=== PATIENT | female | born 1975 | race Caucasian/White ===

== ENCOUNTER → 2016-06-28 | Outpatient (CLI) | payer BC ==
[~2016-06-28] MED LIST: ACET50TA PO; IBUP80TA PO; OMEP10CASR PO; PEPC10TA PO; TYLE500T78 PO; VITAPRTA PO
[2016-06-28 19:18] LABS: ALBUMIN/GLOBULIN RATIO 1.43 (1.00-1.93); ALKALINE PHOSPHATASE 43 U/L (45-117); ALT/SGPT 15 U/L (12-78); ANION GAP 8 MEQ/L (8-16); AST/SGOT 10 U/L (15-37); BILIRUBIN,TOTAL 0.4 MG/DL (0.2-1.0); BLOOD UREA NITROGEN 9 MG/DL (7-18); CALCIUM LEVEL 8.7 MG/DL (8.5-10.1); CARBON DIOXIDE LEVEL 26 MEQ/L (21-32); CHLORIDE LEVEL 107 MEQ/L (98-107); CREATININE FOR GFR 0.78 MG/DL (0.55-1.02); FERRITIN 16 NG/ML (8-252); GLOMERULAR FILTRATION RATE > 60.0 (>60); GLUCOSE, FASTING 87 MG/DL (70-105); MAGNESIUM LEVEL 2.1 MG/DL (1.8-2.4); PERCENT SATURATION 3.3 % (13.2-37.4); PHOSPHORUS LEVEL 3.4 MG/DL (2.5-4.9); POTASSIUM SERUM 4.2 MEQ/L (3.5-5.1); SODIUM LEVEL 141 MEQ/L (136-145); TOTAL IRON BINDING CAPACITY 518 UG/DL (250-450); TOTAL PROTEIN 6.8 GM/DL (6.4-8.2)
[2016-06-28 19:21] LABS: VITAMIN B12 LEVEL 326 PG/ML (247-911)
[2016-06-28 19:43] LABS: BASO # 0.1 K/mm3 (0.0-0.2); BASO % 1.1 % (0.0-1.0); EOS # 0.2 K/mm3 (0.0-0.50); EOS % 3.4 % (0.0-3.0); LARGE UNSTAINED CELL # 0.1 K/mm3 (0.0-0.4); LARGE UNSTAINED CELL % 1.7 % (0.0-4.0); LYMPH # 1.6 K/mm3 (1.5-4.5); LYMPH % 27.6 % (24.0-44.0); MEAN CORPUSCULAR HEMOGLOBIN 23.3 pg (27.0-33.0); MEAN CORPUSCULAR HGB CONC 30.4 g/dl (32.0-36.5); MEAN CORPUSCULAR VOLUME 76.7 fl (80.0-96.0); MONO # 0.5 K/mm3 (0.0-0.8); MONO % 8.4 % (0.0-5.0); NEUTROPHILS # 3.2 K/mm3 (1.8-7.7); NEUTROPHILS % 57.8 % (36.0-66.0); PLATELET COUNT, AUTOMATED 187 k/mm3 (150-450); RED CELL DISTRIBUTION WIDTH 17.3 % (11.5-14.5); WHITE BLOOD COUNT 5.5 K/mm3 (4.0-10.0)
[2016-06-29 10:59] LABS: PRETREATED FOLATE FOR RBCFOL 11.5 NG/ML
== END ==
LOC: M LAB 16:40
PROVIDERS: ATTEND Surgery
DX: K91.2 Postsurgical malabsorption, not elsewhere classified (principal)

== ENCOUNTER 2016-09-01 09:00 | Outpatient (CLI) | payer BC ==
[~2016-09-01] VITALS: Ht 160 cm; Wt 72.7 kg
[2016-09-01] MEDS ORDERED: IRON SUCROSE 25 MG in NS 50 ML IV ONE (09:30)
[2016-09-01] MEDS ORDERED: IRON SUCROSE 475 MG in NS 250 ML IV ONE (10:45)
[2016-09-01 11:37] LABS: FOLATE 23.8 NG/ML
[2016-09-01] MEDS ORDERED: BARI1CHW PO (13:18)
[2016-09-01] MEDS ORDERED: IRON65TA PO (13:19)
[2016-09-01] MEDS ORDERED: DRIS50002 PO (13:19)
[2016-09-01] MEDS ORDERED: D 50CAP PO (13:20)
[2016-09-01] MEDS ORDERED: ALBU17IN INH (13:21)
== END 2016-09-01 14:30 | disposition home or self-care (01) ==
LOC: M INFU 09:00
PROVIDERS: ATTEND Family Medicine
DX: D50.9 Iron deficiency anemia, unspecified (principal); Z98.890 Other specified postprocedural states; F17.200 Nicotine dependence, unspecified, uncomplicated; E55.9 Vitamin D deficiency, unspecified; J45.30 Mild persistent asthma, uncomplicated; Z79.899 Other long term (current) drug therapy
CPT/HCPCS: 80061; 82306; 82607; 82746; 83540; 96365; J1756

== ENCOUNTER 2016-09-15 09:12 | Outpatient (CLI) | payer BC ==
[~2016-09-15 09:12] MED LIST changes: +ALBU17IN INH; +BARI1CHW PO; +D 50CAP PO; +DRIS50002 PO; +IRON65TA PO
[2016-09-15] MEDS ORDERED: IRON SUCROSE 500 MG in NS 250 ML IV ONE (09:30)
== END 2016-09-15 09:40 | disposition home or self-care (01) ==
LOC: M INFU 09:12
PROVIDERS: ATTEND Family Medicine
DX: D50.0 Iron deficiency anemia secondary to blood loss (chronic) (principal); Z53.8 Procedure and treatment not carried out for other reasons; F17.200 Nicotine dependence, unspecified, uncomplicated; J45.30 Mild persistent asthma, uncomplicated; B00.1 Herpesviral vesicular dermatitis; N92.0 Excessive and frequent menstruation with regular cycle
CPT/HCPCS: 96365; J1756

== ENCOUNTER 2016-09-23 08:53 | Outpatient (CLI) | payer BC ==
[~2016-09-23] VITALS: Ht 160 cm; Wt 72.7 kg
[2016-09-23] MEDS ORDERED: IRON SUCROSE 500 MG in NS 250 ML IV ONE (09:30)
== END 2016-09-23 13:45 | disposition home or self-care (01) ==
LOC: M INFU 08:53
PROVIDERS: ATTEND Family Medicine
DX: D50.0 Iron deficiency anemia secondary to blood loss (chronic) (principal); J45.30 Mild persistent asthma, uncomplicated; F17.210 Nicotine dependence, cigarettes, uncomplicated
CPT/HCPCS: 96365; 96366; J1756

== ENCOUNTER → 2017-01-03 | Outpatient (CLI) | payer OTHER ==
[~2017-01-03] MED LIST changes: -PEPC10TA PO; +PEPC10TA6 PO
[2017-01-03 17:35] LABS: CONTROL LINE HCG INT CTR LINE PRESENT
[2017-01-03 17:59] LABS: INR 0.93
== END ==
LOC: M SMT 14:33
PROVIDERS: ATTEND Physical Medicine & Rehabilitation
DX: M48.06 Spinal stenosis, lumbar region (principal)

== ENCOUNTER → 2017-05-02 | Outpatient (REF) | payer BC ==
[2017-05-02 15:20] LABS: IONIZED CALCIUM 4.6 MG/DL (4.5-5.3)
[2017-05-02 15:27] LABS: BASO # 0.1 10^3/uL (0.0-0.2); BASO % 1.2 % (0.0-1.0); EOS # 0.2 10^3/uL (0.0-0.50); EOS % 2.6 % (0.0-3.0); HEMOGLOBIN 14.2 g/dl (12.0-16.0); IMMATURE GRANULOCYTE % 0.2 % (0-0); LYMPH # 1.2 10^3/uL (1.5-4.5); LYMPH % 20.1 % (24.0-44.0); MEAN CORPUSCULAR HEMOGLOBIN 28.9 pg (27.0-33.0); MEAN CORPUSCULAR VOLUME 87.6 fl (80.0-96.0); MONO # 0.7 10^3/uL (0.0-0.8); MONO % 12.1 % (0.0-5.0); NEUTROPHILS # 3.8 10^3/uL (1.8-7.7); NEUTROPHILS % 63.8 % (36.0-66.0); PLATELET COUNT, AUTOMATED 213 10^3/uL (150-450); RED BLOOD COUNT 4.91 10^6/uL (4.00-5.40); RED CELL DISTRIBUTION WIDTH 14.3 % (11.5-14.5); WHITE BLOOD COUNT 5.9 10^3/uL (4.0-10.0)
[2017-05-02 15:51] LABS: C REACTIVE PROTEIN QUANTITATIV < 0.30 MG/DL (0.00-0.30); FREE T4 0.86 NG/DL (0.76-1.46); IRON (FE) 20 UG/DL (50-170); RHEUMATOID FACTOR QUANT < 10.0 IU/ML (0-15.0); TOTAL 25(OH) VITAMIN D 22.7 NG/ML (30.0-100.0); URIC ACID 2.8 MG/DL (2.6-6.0)
[2017-05-02 15:52] LABS: FOLATE 11.6 NG/ML (>5.4)
[2017-05-02 16:02] LABS: ESTIMATED AVERAGE GLUCOSE 117 MG/DL (60-110); HEMOGLOBIN A1c 5.7 %
== END ==
LOC: M SFHCPLAZ 12:37
DX: Z98.890 Other specified postprocedural states (principal); D50.0 Iron deficiency anemia secondary to blood loss (chronic); M13.0 Polyarthritis, unspecified; F41.8 Other specified anxiety disorders; H53.8 Other visual disturbances

== ENCOUNTER → 2018-05-30 | Outpatient (REF) | payer BC ==
[~2018-05-30] MED LIST changes: -ACET50TA PO; -DRIS50002 PO; +DRIS50003 PO; +MAPA500T2 PO
[2018-05-30 19:18] LABS: BASO # 0.1 10^3/uL (0.0-0.2); BASO % 1.5 % (0.0-1.0); EOS # 0.1 10^3/uL (0.0-0.50); HEMATOCRIT 38.2 % (36.0-47.0); LYMPH # 1.2 10^3/uL (1.5-4.5); LYMPH % 19.6 % (24.0-44.0); MEAN CORPUSCULAR HGB CONC 31.4 g/dl (32.0-36.5); MEAN CORPUSCULAR VOLUME 79.6 fl (80.0-96.0); MONO # 0.9 10^3/uL (0.0-0.8); MONO % 14.6 % (0.0-5.0); NEUTROPHILS # 3.8 10^3/uL (1.8-7.7); NEUTROPHILS % 62.1 % (36.0-66.0); PLATELET COUNT, AUTOMATED 241 10^3/uL (150-450); WHITE BLOOD COUNT 6.1 10^3/uL (4.0-10.0)
[2018-05-30 19:55] LABS: C REACTIVE PROTEIN QUANTITATIV < 0.30 MG/DL (0.00-0.30); IRON (FE) 19 UG/DL (50-170)
[2018-05-30 20:00] LABS: ERYTHROCYTE SEDIMENTATION RATE 6 mm/hr (0-20); TOTAL 25(OH) VITAMIN D 23.9 NG/ML (30.0-100.0)
[2018-06-01 15:05] LABS: ANTI DOUBLE STRAND-DNA AB 1 IU/mL (0-9); ANTINUCLEAR ANTIBODIES DIRECT Negative (Negative)
== END ==
LOC: M SFHCPLAZ 15:09
PROVIDERS: ATTEND Family Medicine
DX: M13.0 Polyarthritis, unspecified (principal); R53.82 Chronic fatigue, unspecified; F41.8 Other specified anxiety disorders; E55.9 Vitamin D deficiency, unspecified

== ENCOUNTER → 2019-03-02 | Outpatient (CLI) | payer BC ==
--- NOTE | 2019-03-02 14:39 | REP ---
Three views chest: 03/02/2019. Indication: Cough. Comparison: None. Findings: The lungs are clear. There is no pleural effusion or pneumothorax. The cardiomediastinal silhouette is unremarkable. Impression: No acute cardiopulmonary process. Electronically Signed by Antonio Tenorio DO 03/02/2019 02:30 P
== END ==
LOC: M ADAMS 13:48
PROVIDERS: ATTEND Family Medicine
DX: Z00.00 Encounter for general adult medical examination without abnormal findings (principal); R05 Cough

== ENCOUNTER → 2019-09-14 | Outpatient (REF) | payer BC ==
[2019-09-14 17:56] LABS: BASO # 0.1 10^3/uL (0.0-0.2); BASO % 1.7 % (0.0-1.0); EOS # 0.2 10^3/uL (0.0-0.5); EOS % 3.4 % (0.0-3.0); HEMATOCRIT 38.4 % (36.0-47.0); HEMOGLOBIN 12.2 g/dl (12.0-15.5); LYMPH # 1.7 10^3/uL (1.5-5.0); LYMPH % 26.5 % (24.0-44.0); MEAN CORPUSCULAR HEMOGLOBIN 26.3 pg (27.0-33.0); MEAN CORPUSCULAR HGB CONC 31.8 g/dl (32.0-36.5); MEAN CORPUSCULAR VOLUME 82.9 fl (80.0-96.0); MONO # 0.8 10^3/uL (0.0-0.8); MONO % 12.3 % (0.0-5.0); NEUTROPHILS # 3.6 10^3/uL (1.5-8.5); NEUTROPHILS % 55.8 % (36.0-66.0); PLATELET COUNT, AUTOMATED 251 10^3/uL (150-450); RED BLOOD COUNT 4.63 10^6/uL (4.00-5.40); WHITE BLOOD COUNT 6.5 10^3/uL (4.0-10.0)
[2019-09-14 18:55] LABS: ALBUMIN 4.1 GM/DL (3.2-5.2); ALT/SGPT 24 U/L (12-78); BILIRUBIN,TOTAL 0.5 MG/DL (0.2-1.0); BLOOD UREA NITROGEN 9 MG/DL (7-18); CALCIUM LEVEL 9.4 MG/DL (8.5-10.1); CARBON DIOXIDE LEVEL 27 MEQ/L (21-32); CHLORIDE LEVEL 104 MEQ/L (98-107); CREATININE FOR GFR 0.79 MG/DL (0.55-1.30); FREE T4 0.97 NG/DL (0.76-1.46); GLOMERULAR FILTRATION RATE > 60.0 (>58); GLUCOSE, FASTING 84 MG/DL (70-100); IRON (FE) 20 UG/DL (50-170); POTASSIUM SERUM 4.2 MEQ/L (3.5-5.1); SODIUM LEVEL 136 MEQ/L (136-145); TOTAL 25(OH) VITAMIN D 23.6 NG/ML (30.0-100.0); TOTAL PROTEIN 7.3 GM/DL (6.4-8.2)
== END ==
LOC: M SFHCADAM 16:42
PROVIDERS: ATTEND Family Medicine
DX: Z98.84 Bariatric surgery status (principal); F41.9 Anxiety disorder, unspecified

== ENCOUNTER → 2020-01-30 | Outpatient (CLI) | payer OTHER ==
--- NOTE | 2020-01-30 11:54 | REP ---
INDICATION: N63.10 LUMP OF RT BREAST. COMPARISON: None TECHNIQUE: MLO and CC views of both breasts performed. Additional spot compression views of the right breast are performed. Focused right breast ultrasound performed at the site of the reported palpable lump at about 10 to 11 o'clock position. FINDINGS: Breast parenchyma is moderately dense in a heterogeneous pattern. No mass or clustered microcalcifications are seen bilaterally. No mammographic abnormality is seen at the site of the palpable lump. Real-time sonographic evaluation of upper outer quadrant right breast is performed at the site of the palpable lump. No discrete cystic or solid nodule is seen. The Volpara volumetric breast density pattern is C. IMPRESSION: BIRADS/ACR category 1-. No mass or clustered microcalcifications mammographically. There is no mammographic or sonographic evidence of a mass at the site of the reported palpable abnormality upper outer quadrant right breast. A negative mammogram and ultrasound should not deter biopsy if there is a clinically suspicious palpable mass present. Clinical correlation and follow-up recommended. This patient's Tyrer-Cuzick lifetime breast cancer risk assessment score is 10.2%. This mammogram was interpreted with the aid of an FDA-approved computer-aided detection system. The patient states she had a clinical breast exam in January 2020. The patient letter being requested is M2. RECOMMENDATION: Repeat screening mammography recommended 1 year (for women over 40). Given the dense breast parenchyma, history of clinical finding and right nipple discharge, MRI is recommended. <Electronically signed by Tye Melgar > 01/30/20 [id number]
== END ==
LOC: M WHC 08:42
PROVIDERS: ATTEND Family Medicine
DX: N63.10 Unspecified lump in the right breast, unspecified quadrant (principal)

== ENCOUNTER → 2020-02-25 | Outpatient (REF) | payer OTHER ==
[~2020-02-25] MED LIST changes: +B-12100T2 PO; +D31000TA2 PO; +IRON240T PO; +MULT-90 PO; +PAXI20TA29 PO; +VENTAER INH; +VITA500C19 PO
== END ==
LOC: M SFHCWAGY 17:14
PROVIDERS: ATTEND Obstetrics & Gynecology
DX: Z12.4 Encounter for screening for malignant neoplasm of cervix (principal); Z01.419 Encounter for gynecological examination (general) (routine) without abnormal findings

== ENCOUNTER → 2020-02-28 | Outpatient (REF) | payer OTHER | LOC: M SFHCWAGY 13:06 | PROVIDERS: ATTEND Obstetrics & Gynecology | DX: N93.9 Abnormal uterine and vaginal bleeding, unspecified (principal) ==

== ENCOUNTER → 2020-02-28 | Outpatient (CLI) | payer OTHER ==
[~2020-02-28] MED LIST changes: +PROHANCE 279.3MG/ML 15ML VIAL As Ordered ONE
--- NOTE | 2020-02-28 18:21 | REP ---
INDICATION: BREAST DISCHARGE. COMPARISON: Mammogram 01/30/2020. TECHNIQUE: Three [place] MRI imaging was performed with a dedicated breast coil. Axial, coronal, and sagittal T1 and T2 weighted scans were obtained with and without fat saturation in the usual fashion. The study includes dynamically acquired post gadolinium-enhanced imaging with image subtraction. Maximum intensity projection and multi planar reformation imaging is included as well. This study is interpreted with the aid of BlueflyD, an FDA approved computer aided detection (CAD) software program, on a dedicated breast MRI workstation. The gadolinium enhancement dose is 15 mL of intravenous ProHance. FINDINGS: There is moderate fibroglandular tissue symmetrically bilaterally. No significant cystic changes seen in either breast. There is no axillary adenopathy. There is very mild background parenchymal enhancement bilaterally. I see no suspicious enhancing mass or morphologic abnormality. IMPRESSION: BI-RADS category 1-bilateral breast MRI. No suspicious enhancing mass or morphologic abnormality. <Electronically signed by Tye Melgar > 02/28/20 [id number]
== END ==
LOC: M RAD 15:30
PROVIDERS: ATTEND Family Medicine
DX: N64.52 Nipple discharge (principal); N63.0 Unspecified lump in unspecified breast
CPT/HCPCS: A9576; C8908

== ENCOUNTER → 2020-02-29 | Outpatient (CLI) | payer OTHER ==
[~2020-02-29] MED LIST changes: -PROHANCE 279.3MG/ML 15ML VIAL As Ordered ONE
--- NOTE | 2020-02-29 17:05 | REP ---
INDICATION: N93.9 ABNORMAL UTERINE BLEEDING COMPARISON: None. TECHNIQUE: Transabdominal pelvic ultrasound followed by transvaginal examination for better evaluation of the endometrium and adnexa with color Doppler evaluation of the ovaries. FINDINGS: Bladder is collapsed. Normal retroverted uterus measures 6.9 x 4.8 x 5.0 cm. The endometrial complex appears relatively normal with IUD identified in central satisfactory position. Bilateral ovaries are normal in vascularity without evidence for torsion. Right ovary measures 1.9 x 0.8 x 1.9 cm; R I = 0.46. Left ovary measures 4.1 x 1.3 x 1.3 cm with 1.5 x 1.2 x 1.1 cm complex likely physiologic cyst; R I = 0.49. No pelvic fluid or adnexal mass lesion. IMPRESSION: Retroverted uterus with IUD in central satisfactory position. Complex likely physiologic left ovarian cyst <Electronically signed by Enrique De Anda > 02/29/20 [id number]
== END ==
LOC: M WHC 08:34
PROVIDERS: ATTEND Obstetrics & Gynecology
DX: N93.9 Abnormal uterine and vaginal bleeding, unspecified (principal); N83.202 Unspecified ovarian cyst, left side; Z97.5 Presence of (intrauterine) contraceptive device; N85.4 Malposition of uterus

== ENCOUNTER → 2020-03-09 | Outpatient (CLI) | payer OTHER | LOC: M LABSMTC 08:38 | PROVIDERS: ATTEND Anesthesiology | DX: Z01.812 Encounter for preprocedural laboratory examination (principal); Z20.828 Contact with and (suspected) exposure to other viral communicable diseases ==

== ENCOUNTER 2020-03-14 11:20 | Day surgery (SDC) | payer OTHER ==
[~2020-03-14] VITALS: Ht 160 cm; Wt 71.7 kg
[~2020-03-14 11:20] MED LIST changes: +HYDROmorphone HCL 2 MG/ML 1ML VIAL (J1170) As Ordered ONE; +LIDOCAINE 2% 100MG/5ML SDV (FOR ANES.) As Ordered ONE; +LR 1,000 ML IV ONE; +METOCLOPRAMIDE INJ 10MG/2ML VIAL (J2765 PER 1) As Ordered ONE; +MIDAZOLAM INJ 2MG/2ML VIAL (J2250 PER 1MG) As Ordered ONE; +ONDANSETRON 4MG/2ML VIAL As Ordered ONE; +ROCURONIUM BROMIDE 50 MG/5 ML VIAL As Ordered ONE; +SUGAMMADEX SODIUM 500 MG/5 ML VIAL (BRIDION) As Ordered ONE; +ceFAZolin SOD 2 GM in IV 1 EA IV ONE; +dexameTHASONE 4 MG/ML 1ML VIAL (J1100 PER 1MG) As Ordered ONE; +fentaNYL 250 MCG/5 ML INJECTION (J3010) As Ordered ONE; +propofoL 200 MG/20 ML VIAL As Ordered ONE
[2020-03-14 12:16] LABS: HEMOGLOBIN 11.6 g/dl (12.0-15.5); MEAN CORPUSCULAR HEMOGLOBIN 23.8 pg (27.0-33.0); MEAN CORPUSCULAR HGB CONC 30.5 g/dl (32.0-36.5); PLATELET COUNT, AUTOMATED 255 10^3/uL (150-450); RED BLOOD COUNT 4.87 10^6/uL (4.00-5.40)
[2020-03-14] MEDS ORDERED: BUPIVACAINE HCL 0.25% 30ML VIAL As Ordered ONE (12:30)
[2020-03-14] MEDS ORDERED: METHYLENE BLUE 0.5% (5MG/ML) 10 ML AMP (PROVAYBLUE) As Ordered ONE (12:30)
[2020-03-14 12:45] LABS: HCG, SERUM QUALITATIVE NEGATIVE (NEGATIVE)
[2020-03-14] MEDS ORDERED: ACETAMINOPHEN 1000MG 100ML IV BTL (OFIRMEV) (J0131 PER 10MG) As Ordered ONE (13:57)
--- NOTE | 2020-03-14 14:46 | ROOPDOC ---
[facility] Report Of Operation Report of Operation DATE OF PROCEDURE: 03/14/2020 PREPROCEDURE DIAGNOSES: Abnormal uterine bleeding, chronic pelvic pain. POSTPROCEDURE DIAGNOSES: Same. PROCEDURE: Robotic-assisted total laparoscopic hysterectomy, bilateral salpingectomy, cystoscopy SURGEON: David Mckeon D.O. 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 ESTIMATED BLOOD LOSS: Approximately 50 mL. FLUIDS REPLACED: 1700 mL LR URINE OUTPUT: 25-50 mL COMPLICATIONS: None. FINDINGS: Normal-appearing ovaries bilaterally. Uterus was approximately 8 centimeters in greatest dimension. Small hemorrhagic/endometriotic cyst along left uteroovarian ligament medially (incidentally removed along with uterus.) Cystoscopy: Bilateral ureteral orifice efflux, no bladder injury/suture material. PREOPERATIVE ANTIBIOTIC PROPHYLAXIS: Ancef 2 g IV 1. SPECIMEN(S): Uterus w/ cervix, bilateral fallopian tubes DESCRIPTION OF PROCEDURE: The patient was counseled, consented on the respective benefits, indications, alternatives of procedure. Informed consent was obtained. She was taken to the operating room with an IV running. She was placed on the operating table in dorsal supine position. Gen. anesthesia was administered and the airway was secured without any difficulty. She was placed in the low lithotomy position. . She was prepared and draped in the normal sterile fashion. A time out was performed per protocol. A Lopez catheter was placed under sterile conditions. A sterile speculum was placed resulting in good visualization of the cervix. A single-tooth tenaculum was used to grasp the anterior lip cervix. The cervix was sequentially dilated with Valentin dilators. A V-Care uterine manipulator was placed without any difficulty. The single-tooth tenaculum was removed, as well as the speculum. A sterile glove switch was performed. Attention was turned to the abdomen. A 2mm incision was made in the umbilicus, and through this incision a Veress needle was inserted into the intraperitoneal cavity. Intraperitoneal placement was confirmed with ease of flow of normal saline, positive drop test, no return on aspiration, and an opening pressure of less than 10 mmHg upon initial insufflation. The abdomen was insufflated with 2 L of gas. The Veress needle was removed. A supraumbilical 8 mm incision was made. Through this incision, the robotic trochar/cannula was inserted into the intraperitoneal cavity under direct visualization. No incidental bleeding nor injury was noted. Patient was placed in 30 Trendelenburg. The right and left trocars/cannulas were placed on both the right and left side through 8 mm incisions, guided by laparoscopic visualization. No incidental bleeding nor injury was noted. The robot was docked in typical fashion. The instruments were inserted, guided by laparoscopic visualization. My attention was turned to the robotic console. Using the vessel sealer device, the right and left fallopian tubes were amputated. The fallopian tubes were brought through the assist-port cannula without any difficulty. The right utero-ovarian ligament and right round ligament were sequentially clamped, coagulated and transected with the vessel sealer device. The vesicouterine peritoneum was dissected with the vessel sealer device to create the bladder flap, thus mobilizing the lower uterine segment and cervix off of the bladder. The right uterine vasculature was sequentially clamped, coagulated and transected above the colpotomy cup. The left utero-ovarian ligament and left round ligament were sequentially clamped, coagulated and transected with the vessel sealer device. The remainder of the bladder flap was dissected using the vessel sealer device and blunt dissection. The left uterine vasculature was sequentially clamped, coagulated and transected above the colpotomy cup. The outline of the entire V- care colpotomy cup was able to be delineated. Excellent blanching of the uterus was noted. A circumferential colpotomy was performed using the da Mario monopolar tito, following the contour of the cup. The amputated cervix and uterus were brought through the colpotomy into and out of the vagina, intact as one unit. The colpotomy was closed with the V-lock barbed suture in running fashion, thus creating the vaginal cuff. Excellent hemostasis was noted throughout the steps above. Chantel was placed over the vaginal cuff to ensure hemostasis. The instruments were removed from the abdomen and the robot was un-docked. The gas was released from the abdomen and the patient was taken out of Trendelenburg. I re-scrubbed, and attention was turned to the pelvis. The Lopez catheter was removed. The cystoscope was placed transurethrally into the bladder and normal saline was instilled. No bladder injury/suture material was noted. IV methylene blue had been administered by anesthesia and bilateral UO efflux was confirmed. The fluid was drained out of the bladder through the cystoscope device, then the cystoscope was removed. The vagina was copiously irrigated. A sterile digital vaginal exam revealed no significant bleeding and an intact vaginal cuff. A sterile glove switch was performed. The da Mario cannulas were removed. The skin incisions were closed with 4-0 Monocryl in subcuticular fashion. Sponge, needle and instrument counts were correct per protocol. The patient tolerated the entire procedure very well. She was transferred to the PACU in good and stable condition. DO ORALIA Maradiaga JONATHAN R. DO Mar 14, 2020 14:46
[2020-03-14] MEDS ORDERED: PERC5TAB12 PO (14:47)
[2020-03-14] MEDS ORDERED: COLA100C5 PO (14:49)
[2020-03-14] MEDS ORDERED: HYDROMORPHONE HCL 0.5 MG/ 0.5 ML SYRINGE (J1170 PER 1) IV PRN (15:00)
[2020-03-14] MEDS ORDERED: fentaNYL 100 MCG/2 ML INJECTION (J3010) IV PRN (15:00)
[2020-03-14] MEDS ORDERED: LR 1,000 ML IV SCH ×2 (15:00)
[2020-03-14] MEDS ORDERED: ONDANSETRON 4MG/2ML VIAL IV PRN ×2 (15:00→15:15)
[2020-03-14] MEDS ORDERED: oxyCODONE 5MG TAB PO PRN (15:00)
[2020-03-14] MEDS ORDERED: KETOROLAC 30 MG/ML 1ML VIAL IV PRN (15:15)
[2020-03-14] MEDS ORDERED: PROMETHAZINE INJ 25 MG/ML VIAL (J2550) IV PRN (15:15)
[2020-03-14] MEDS ORDERED: PERCOCET 5MG/325MG TAB PO PRN (15:15)
[2020-03-14 16:55] VITALS: BP 137/79
[2020-03-14 17:25] VITALS: BP 124/78
[2020-03-14 17:55] VITALS: BP 137/78
[2020-03-14 18:00] VITALS: BP 154/87
[2020-03-14] MEDS ORDERED: ACET1TAB16 PO (19:24)
[2020-03-14] MEDS ORDERED: DOCUSATE SODIUM 100MG CAPSULE PO PRN (21:00)
== END 2020-03-14 20:21 | disposition home or self-care (01) ==
LOC: M SDC 11:20 → M MSPAV 16:49 → M SDC 20:21
PROVIDERS: ATTEND Obstetrics & Gynecology
DX: N93.9 Abnormal uterine and vaginal bleeding, unspecified (principal); R10.2 Pelvic and perineal pain; J45.909 Unspecified asthma, uncomplicated; D64.9 Anemia, unspecified; F41.9 Anxiety disorder, unspecified; Z98.84 Bariatric surgery status; K21.9 Gastro-esophageal reflux disease without esophagitis; Z79.899 Other long term (current) drug therapy; F17.218 Nicotine dependence, cigarettes, with other nicotine-induced disorders
CPT/HCPCS: 36415; 58571; 81025; 84703; 85027; 86850; 86900; 86901; 88307; J0131; J0690; J1100; J1170; J1885; J2250; J2405; J2765; J3010; Q9968; S2900

== ENCOUNTER → 2020-05-12 | Outpatient (REF) | payer OTHER ==
[~2020-05-12] MED LIST changes: +ACET1TAB16 PO; +COLA100C5 PO; -HYDROmorphone HCL 2 MG/ML 1ML VIAL (J1170) As Ordered ONE; -LIDOCAINE 2% 100MG/5ML SDV (FOR ANES.) As Ordered ONE; -LR 1,000 ML IV ONE; -METOCLOPRAMIDE INJ 10MG/2ML VIAL (J2765 PER 1) As Ordered ONE; -MIDAZOLAM INJ 2MG/2ML VIAL (J2250 PER 1MG) As Ordered ONE; -ONDANSETRON 4MG/2ML VIAL As Ordered ONE; +PERC5TAB12 PO; -ROCURONIUM BROMIDE 50 MG/5 ML VIAL As Ordered ONE; -SUGAMMADEX SODIUM 500 MG/5 ML VIAL (BRIDION) As Ordered ONE; -ceFAZolin SOD 2 GM in IV 1 EA IV ONE; -dexameTHASONE 4 MG/ML 1ML VIAL (J1100 PER 1MG) As Ordered ONE; -fentaNYL 250 MCG/5 ML INJECTION (J3010) As Ordered ONE; -propofoL 200 MG/20 ML VIAL As Ordered ONE
[2020-05-12 13:14] LABS: FREE T4 0.71 NG/DL (0.76-1.46); THYROID STIMULATING HORMONE 1.38 uIU/ML (0.358-3.740)
[2020-05-12 13:25] LABS: PROLACTIN 7.2 NG/ML
== END ==
LOC: M PLALAB 10:12
PROVIDERS: ATTEND Surgery
DX: N64.52 Nipple discharge (principal)

== ENCOUNTER → 2020-11-26 | Outpatient (REF) | LOC: M LABSMTC 11:15 | PROVIDERS: ATTEND Pediatrics | DX: Z20.822 Contact with and (suspected) exposure to COVID-19 (principal) ==

== ENCOUNTER → 2021-10-14 | Outpatient (REF) | payer BC ==
[~2021-10-14] MED LIST changes: -ACET1TAB16 PO; +ACET300T48 PO; -D31000TA2 PO; +VITA100093 PO
[2021-10-14 12:57] LABS: CK-MB VALUE MASS < 1.0 NG/ML (<3.6); CPK CREATINE PHOSPHOKINASE 72 U/L (26-192); MB/CK RELATIVE INDEX 1.39 (< OR =4)
[2021-10-14 13:15] LABS: FREE T4 0.76 NG/DL (0.76-1.46); THYROID STIMULATING HORMONE 1.33 uIU/ML (0.358-3.740)
== END ==
LOC: M SFHCADAM 09:52
PROVIDERS: ATTEND Family Medicine
DX: R07.89 Other chest pain (principal); R79.89 Other specified abnormal findings of blood chemistry

== ENCOUNTER → 2021-10-14 | Outpatient (CLI) | payer BC | LOC: M ADAMS 09:56 | PROVIDERS: ATTEND Family Medicine | DX: R07.89 Other chest pain (principal) ==

== ENCOUNTER → 2022-01-27 | Outpatient (CLI) | payer BC | LOC: M ADAMS 11:08 | PROVIDERS: ATTEND Physician Assistant | DX: J20.9 Acute bronchitis, unspecified (principal) ==

== ENCOUNTER → 2022-03-15 | Outpatient (REF) | payer BC | LOC: M SFHCADAM 11:27 | PROVIDERS: ATTEND Family Medicine | DX: K52.9 Noninfective gastroenteritis and colitis, unspecified (principal) ==

== ENCOUNTER → 2022-06-14 | Outpatient (CLI) | payer BC ==
[~2022-06-14] MED LIST changes: +DICY10CA13 PO; -PAXI20TA29 PO; +PAXI20TA30 PO; +PAXI30TA12 PO
== END ==
LOC: M LABSMTC 12:07
PROVIDERS: ATTEND Anesthesiology
DX: Z01.812 Encounter for preprocedural laboratory examination (principal)

== ENCOUNTER → 2022-06-16 | Outpatient (REF) | payer BC ==
[2022-06-16 18:14] LABS: BASO # 0.1 10^3/uL (0.0-0.2); BASO % 1.9 % (0.0-1.0); EOS # 0.2 10^3/uL (0.0-0.5); EOS % 4.2 % (0.0-3.0); HEMATOCRIT 41.7 % (36.0-47.0); HEMOGLOBIN 13.5 g/dl (12.0-15.5); LYMPH # 1.2 10^3/uL (1.5-5.0); LYMPH % 26.7 % (24.0-44.0); MEAN CORPUSCULAR HEMOGLOBIN 29.7 pg (27.0-33.0); MEAN CORPUSCULAR HGB CONC 32.4 g/dl (32.0-36.5); MEAN CORPUSCULAR VOLUME 91.6 fl (80.0-96.0); MONO # 0.7 10^3/uL (0.0-0.8); MONO % 17.2 % (2.0-8.0); NEUTROPHILS # 2.2 10^3/uL (1.5-8.5); NEUTROPHILS % 49.8 % (36.0-66.0); PLATELET COUNT, AUTOMATED 242 10^3/uL (150-450); RED BLOOD COUNT 4.55 10^6/uL (4.00-5.40); WHITE BLOOD COUNT 4.3 10^3/uL (4.0-10.0)
[2022-06-16 18:37] LABS: ALBUMIN 3.9 G/DL (3.2-5.2); ALKALINE PHOSPHATASE 55 U/L (46-116); ALT/SGPT 24 U/L (7.0-40); AST/SGOT 27 U/L (<34); BILIRUBIN,TOTAL 0.8 MG/DL (0.3-1.2); BLOOD UREA NITROGEN 7 MG/DL (9-23); CALCIUM LEVEL 9.2 MG/DL (8.5-10.1); CARBON DIOXIDE LEVEL 28 MMOL/L (20-31); CHLORIDE LEVEL 104 MMOL/L (98-107); CREATININE FOR GFR 0.64 MG/DL (0.55-1.30); GLOMERULAR FILTRATION RATE > 60.0 (>58); GLUCOSE, FASTING 88 MG/DL (60-100); IRON (FE) 133 UG/DL (50-170); PERCENT SATURATION 30.9 % (13.2-45.0); POTASSIUM SERUM 4.6 MMOL/L (3.5-5.1); SODIUM LEVEL 137 MMOL/L (136-145); TOTAL IRON BINDING CAPACITY 430 UG/DL (250-425); TOTAL PROTEIN 6.7 G/DL (5.7-8.2)
[2022-06-16 18:39] LABS: FOLATE 6.2 NG/ML (>5.4); TOTAL 25(OH) VITAMIN D 10.4 NG/ML (20.0-100.0); VITAMIN B12 LEVEL 209 PG/ML (211-911)
== END ==
LOC: M SFHCADAM 13:10
PROVIDERS: ATTEND Family Medicine
DX: R53.83 Other fatigue (principal); Z98.84 Bariatric surgery status

== ENCOUNTER → 2022-06-16 | Outpatient (REF) | payer BC | LOC: M LAB REF 17:15 | PROVIDERS: ATTEND Internal Medicine Gastroenterology | DX: R19.4 Change in bowel habit (principal) ==

== ENCOUNTER 2022-06-17 08:45 | Day surgery (SDC) | payer BC ==
[~2022-06-17] VITALS: Ht 160 cm; Wt 82.9 kg
[~2022-06-17 08:45] MED LIST changes: +NS 1,000 ML IV ONE
[2022-06-17] MEDS ORDERED: LIDOCAINE 2% 100MG/5ML SDV (FOR ANES.) As Ordered ONE (09:37)
[2022-06-17] MEDS ORDERED: propofoL 200 MG/20 ML VIAL As Ordered ONE ×3 (09:37→09:48)
[2022-06-17 10:15] VITALS: BP 142/86
== END 2022-06-17 10:20 | disposition home or self-care (01) ==
LOC: M OPP 08:45
PROVIDERS: ATTEND Internal Medicine Gastroenterology
DX: K63.89 Other specified diseases of intestine (principal); D64.9 Anemia, unspecified; J45.909 Unspecified asthma, uncomplicated; F17.200 Nicotine dependence, unspecified, uncomplicated; Z79.51 Long term (current) use of inhaled steroids; Z79.899 Other long term (current) drug therapy; Z98.84 Bariatric surgery status; Z80.41 Family history of malignant neoplasm of ovary

== ENCOUNTER → 2022-07-27 | Outpatient (CLI) | payer BC ==
[~2022-07-27] MED LIST changes: +GASTROGRAFIN SOLUTION 30ML As Ordered ONE; +ISOVUE-370 76% 100ML VIAL As Ordered ONE; -NS 1,000 ML IV ONE
== END ==
LOC: M RAD 07:16
PROVIDERS: ATTEND Internal Medicine Gastroenterology
DX: N20.0 Calculus of kidney (principal); K86.81 Exocrine pancreatic insufficiency; K86.89 Other specified diseases of pancreas
CPT/HCPCS: 74160; Q9963; Q9967

== ENCOUNTER 2022-12-17 15:41 | Emergency (ER) | payer BC ==
[~2022-12-17] VITALS: Ht 160 cm; Wt 84.5 kg
[~2022-12-17 15:41] MED LIST changes: +DICY-61 PO; -DICY10CA13 PO; -GASTROGRAFIN SOLUTION 30ML As Ordered ONE; -ISOVUE-370 76% 100ML VIAL As Ordered ONE
[2022-12-17 16:11] LABS: BASO # 0.1 10^3/uL (0.0-0.2); BASO % 1.4 % (0.0-1.0); EOS # 0.1 10^3/uL (0.0-0.5); EOS % 1.7 % (0.0-3.0); HEMATOCRIT 40.1 % (36.0-47.0); HEMOGLOBIN 13.2 g/dl (12.0-15.5); LYMPH # 1.3 10^3/uL (1.5-5.0); LYMPH % 19.6 % (24.0-44.0); MEAN CORPUSCULAR HEMOGLOBIN 29.7 pg (27.0-33.0); MEAN CORPUSCULAR HGB CONC 32.9 g/dl (32.0-36.5); MEAN CORPUSCULAR VOLUME 90.3 fl (80.0-96.0); MONO # 0.7 10^3/uL (0.0-0.8); NEUTROPHILS # 4.3 10^3/uL (1.5-8.5); NEUTROPHILS % 65.8 % (36.0-66.0); PLATELET COUNT, AUTOMATED 224 10^3/uL (150-450); RED BLOOD COUNT 4.44 10^6/uL (4.00-5.40); WHITE BLOOD COUNT 6.5 10^3/uL (4.0-10.0)
[2022-12-17 16:40] LABS: CK-MB VALUE MASS 1.1 NG/ML (<3.6)
[2022-12-17 16:42] LABS: BLOOD UREA NITROGEN 9 MG/DL (9-23); CARBON DIOXIDE LEVEL 26 MMOL/L (20-31); CHLORIDE LEVEL 108 MMOL/L (98-107); CPK CREATINE PHOSPHOKINASE 100 U/L (34-145); CREATININE FOR GFR 0.76 MG/DL (0.55-1.30); GLOMERULAR FILTRATION RATE > 60.0 (>58); GLUCOSE, FASTING 93 MG/DL (60-100); POTASSIUM SERUM 4.5 MMOL/L (3.5-5.1); SODIUM LEVEL 140 MMOL/L (136-145)
[2022-12-17 18:00] LABS: CK-MB VALUE MASS < 1.0 NG/ML (<3.6); LIPASE 48 U/L (12-53)
[2022-12-17 18:02] LABS: ALBUMIN 3.6 G/DL (3.2-5.2); ALKALINE PHOSPHATASE 56 U/L (46-116); ALT/SGPT 17 U/L (7.0-40); AST/SGOT 15 U/L (<34); BILIRUBIN,DIRECT 0.1 MG/DL (<0.4); BILIRUBIN,TOTAL 0.4 MG/DL (0.3-1.2); CPK CREATINE PHOSPHOKINASE 93 U/L (34-145); MB/CK RELATIVE INDEX 1.07 (< OR =4); TOTAL PROTEIN 6.2 G/DL (5.7-8.2)
[2022-12-17 18:54] VITALS: BP 154/94; TEMP 97.4; O2SAT 96
== END 2022-12-17 18:57 | disposition home or self-care (01) ==
LOC: EDBD 15:41 → M ED 15:41
DX: R07.9 Chest pain, unspecified (principal); F41.9 Anxiety disorder, unspecified; F17.200 Nicotine dependence, unspecified, uncomplicated; Z79.52 Long term (current) use of systemic steroids; Z79.810 Long term (current) use of selective estrogen receptor modulators (SERMs); Z79.899 Other long term (current) drug therapy

== ENCOUNTER → 2023-01-11 | Outpatient (CLI) | payer BC | LOC: M CARPUL 08:05 | PROVIDERS: ATTEND Physician Assistant | DX: I11.9 Hypertensive heart disease without heart failure (principal) ==

== ENCOUNTER → 2023-01-13 | Outpatient (CLI) | payer BC ==
[2023-01-13 15:06] LABS: BASO # 0.1 10^3/uL (0.0-0.2); BASO % 1.5 % (0.0-1.0); EOS # 0.2 10^3/uL (0.0-0.5); EOS % 3.2 % (0.0-3.0); HEMATOCRIT 41.1 % (36.0-47.0); HEMOGLOBIN 13.8 g/dl (12.0-15.5); LYMPH # 1.1 10^3/uL (1.5-5.0); MEAN CORPUSCULAR HEMOGLOBIN 30.7 pg (27.0-33.0); MEAN CORPUSCULAR HGB CONC 33.6 g/dl (32.0-36.5); MEAN CORPUSCULAR VOLUME 91.3 fl (80.0-96.0); MONO # 0.6 10^3/uL (0.0-0.8); MONO % 12.3 % (2.0-8.0); NEUTROPHILS # 2.8 10^3/uL (1.5-8.5); NEUTROPHILS % 59.8 % (36.0-66.0); PLATELET COUNT, AUTOMATED 240 10^3/uL (150-450); WHITE BLOOD COUNT 4.7 10^3/uL (4.0-10.0)
[2023-01-13 15:37] LABS: IRON (FE) 117 UG/DL (50-170); PERCENT SATURATION 27.5 % (13.2-45.0); TOTAL IRON BINDING CAPACITY 426 UG/DL (250-425)
[2023-01-13 15:38] LABS: BLOOD UREA NITROGEN 9 MG/DL (9-23); CALCIUM LEVEL 9.1 MG/DL (8.5-10.1); CARBON DIOXIDE LEVEL 26 MMOL/L (20-31); CHLORIDE LEVEL 106 MMOL/L (98-107); CHOLESTEROL LEVEL 211 MG/DL (<200); CREATININE FOR GFR 0.63 MG/DL (0.55-1.30); FOLATE 7.2 NG/ML (>5.4); GLOMERULAR FILTRATION RATE > 60.0 (>58); GLUCOSE, FASTING 81 MG/DL (60-100); HDL CHOLESTEROL 65.9 MG/DL (>40); LDL CHOLESTEROL 101.7 MG/DL (<100); NON-HDL-C 145.1 MG/DL; POTASSIUM SERUM 4.4 MMOL/L (3.5-5.1); SODIUM LEVEL 139 MMOL/L (136-145); TOTAL 25(OH) VITAMIN D 14.1 NG/ML (20.0-100.0); TRIGLYCERIDES LEVEL 217 MG/DL (<150); VITAMIN B12 LEVEL 257 PG/ML (211-911)
[2023-01-13 16:06] LABS: HEMOGLOBIN A1c 5.2 % (4.0-6.0)
== END ==
LOC: M ADAMS 11:08
PROVIDERS: ATTEND Physician Assistant
DX: I11.9 Hypertensive heart disease without heart failure (principal); E55.9 Vitamin D deficiency, unspecified; Z68.34 Body mass index [BMI] 34.0-34.9, adult

== ENCOUNTER → 2023-05-16 | Outpatient (REF) | LOC: M EMP 09:55 | PROVIDERS: ATTEND Family Medicine | DX: Z53.9 Procedure and treatment not carried out, unspecified reason (principal) ==

== ENCOUNTER → 2023-05-16 | Outpatient (REF) | LOC: M EMP 11:20 | PROVIDERS: ATTEND Family Medicine | DX: Z53.9 Procedure and treatment not carried out, unspecified reason (principal) ==

== ENCOUNTER → 2023-11-07 | Outpatient (REF) | LOC: M EMP 12:32 | PROVIDERS: ATTEND Family Medicine | DX: R09.89 Other specified symptoms and signs involving the circulatory and respiratory systems (principal) ==

== ENCOUNTER → 2024-05-09 | Outpatient (REF) | payer BC ==
[~2024-05-09] MED LIST changes: -VITA500C19 PO; +VITA500C22 PO
[2024-05-09 17:43] LABS: BASO # 0.1 10^3/uL (0.0-0.2); BASO % 1.2 % (0.0-1.0); EOS # 0.1 10^3/uL (0.0-0.5); EOS % 1.8 % (0.0-3.0); HEMATOCRIT 43.5 % (36.0-47.0); HEMOGLOBIN 14.8 g/dl (12.0-15.5); LYMPH # 1.5 10^3/uL (1.5-5.0); LYMPH % 23.1 % (24.0-44.0); MEAN CORPUSCULAR HEMOGLOBIN 33.3 pg (27.0-33.0); MONO # 0.9 10^3/uL (0.0-0.8); MONO % 13.1 % (2.0-8.0); NEUTROPHILS # 3.9 10^3/uL (1.5-8.5); NEUTROPHILS % 60.5 % (36.0-66.0); PLATELET COUNT, AUTOMATED 213 10^3/uL (150-450); RED BLOOD COUNT 4.44 10^6/uL (4.00-5.40); WHITE BLOOD COUNT 6.5 10^3/uL (4.0-10.0)
[2024-05-09 17:48] LABS: ALBUMIN 3.8 G/DL (3.2-5.2); ALKALINE PHOSPHATASE 54 U/L (35-104); ALT/SGPT 16 U/L (7.0-40); AST/SGOT 15 U/L (<34); BILIRUBIN,TOTAL 0.5 MG/DL (0.3-1.2); BLOOD UREA NITROGEN 8 MG/DL (9-23); CALCIUM LEVEL 9.6 MG/DL (8.5-10.1); CARBON DIOXIDE LEVEL 26 MMOL/L (20-31); CHLORIDE LEVEL 106 MMOL/L (98-107); CHOLESTEROL LEVEL 207 MG/DL (<200); CHOLESTEROL RISK RATIO 2.92 (<5); CREATININE FOR GFR 0.68 MG/DL (0.55-1.30); GLOMERULAR FILTRATION RATE > 60.0 (>58); GLUCOSE, FASTING 126 MG/DL (60-100); HDL CHOLESTEROL 70.8 MG/DL (>40); LDL CHOLESTEROL 103.4 MG/DL (<100); NON-HDL-C 136.2 MG/DL; POTASSIUM SERUM 4.2 MMOL/L (3.5-5.1); SODIUM LEVEL 140 MMOL/L (136-145); THYROID STIMULATING HORMONE 0.791 uIU/ML (0.55-4.78); TOTAL PROTEIN 6.7 G/DL (5.7-8.2); TRIGLYCERIDES LEVEL 164 MG/DL (<150)
[2024-05-09 20:29] LABS: HEMOGLOBIN A1c 4.9 % (4.0-6.0)
== END ==
LOC: M SFHCADAM 14:47
PROVIDERS: ATTEND Family Medicine
DX: Z00.00 Encounter for general adult medical examination without abnormal findings (principal); Z86.39 Personal history of other endocrine, nutritional and metabolic disease; R73.9 Hyperglycemia, unspecified

== ENCOUNTER → 2024-11-12 | Day surgery (SDC) | payer BC ==
[~2024-11-12] VITALS: Ht 160 cm; Wt 86.2 kg
[~2024-11-12] MED LIST changes: +HYDR12.55 PO; +KETOROLAC 30 MG/ML 1 ML VIAL As Ordered ONE; +LIDOCAINE 2% 100 MG/5 ML SDV (FOR ANES.) As Ordered ONE; +LOSA50TA28 PO; +LR 1,000 ML IV SCH; +ONDANSETRON 4MG 2ML VIAL As Ordered ONE; +dexAMETHasone 4 MG/ML 1 ML VIAL As Ordered ONE
[2024-11-12 07:41] VITALS: BP 135/78; TEMP 97.1; O2SAT 94
== END | disposition home or self-care (01) ==
LOC: M SDC 07:14
PROVIDERS: ATTEND Orthopaedic Surgery Hand Surgery
DX: Z53.09 Procedure and treatment not carried out because of other contraindication (principal); G56.01 Carpal tunnel syndrome, right upper limb

== ENCOUNTER 2024-12-24 06:18 | Day surgery (SDC) | payer BC ==
[~2024-12-24] VITALS: Ht 160 cm; Wt 85.6 kg
[~2024-12-24 06:18] MED LIST changes: -KETOROLAC 30 MG/ML 1 ML VIAL As Ordered ONE; -LIDOCAINE 2% 100 MG/5 ML SDV (FOR ANES.) As Ordered ONE; -LR 1,000 ML IV SCH; -ONDANSETRON 4MG 2ML VIAL As Ordered ONE; +PARO40TA2 PO; -dexAMETHasone 4 MG/ML 1 ML VIAL As Ordered ONE
[2024-12-24] MEDS ORDERED: VALT1TAB PO (06:50)
[2024-12-24] MEDS ORDERED: LIDOCAINE 2% 100 MG/5 ML SDV (FOR ANES.) As Ordered ONE (06:59)
[2024-12-24] MEDS ORDERED: ONDANSETRON 4MG 2ML VIAL As Ordered ONE (06:59)
[2024-12-24] MEDS ORDERED: dexAMETHasone 4 MG/ML 1 ML VIAL As Ordered ONE (06:59)
[2024-12-24] MEDS ORDERED: MIDAZOLAM INJ 2 MG/2 ML VIAL As Ordered ONE (06:59)
[2024-12-24] MEDS ORDERED: ACETAMINOPHEN 1000MG/100ML IV BAG As Ordered ONE (06:59)
[2024-12-24] MEDS ORDERED: KETOROLAC 30 MG/ML 1 ML VIAL As Ordered ONE (08:00)
[2024-12-24] MEDS ORDERED: diphenhydrAMINE 50 MG/ML VIAL IV PRN (08:15)
[2024-12-24] MEDS ORDERED: HYDROMORPHONE HCL 0.5 MG/0.5 ML SYRINGE IV PRN (08:15)
[2024-12-24] MEDS ORDERED: LR 1,000 ML IV SCH (08:15)
[2024-12-24 08:50] VITALS: BP 115/74; TEMP 97.4; O2SAT 95
== END 2024-12-24 09:10 | disposition home or self-care (01) ==
LOC: M SDC 06:18
PROVIDERS: ATTEND Orthopaedic Surgery Hand Surgery
DX: G56.01 Carpal tunnel syndrome, right upper limb (principal); I10 Essential (primary) hypertension; K21.9 Gastro-esophageal reflux disease without esophagitis; J45.909 Unspecified asthma, uncomplicated; Z79.899 Other long term (current) drug therapy; F17.210 Nicotine dependence, cigarettes, uncomplicated; Z90.710 Acquired absence of both cervix and uterus; Z98.84 Bariatric surgery status; F41.9 Anxiety disorder, unspecified; F32.A Depression, unspecified
CPT/HCPCS: 29848; J0131; J0665; J1100; J1885; J2250; J2405; J3010